=== PATIENT | female | born 1960 | race Caucasian/White ===

== ENCOUNTER → 2021-04-07 08:12 | Outpatient (BNVA) | payer MEDICAID, SELFPAY | PROVIDERS: PCP Internal Medicine; Visit Provider Physician Assistant ==

== ENCOUNTER → 2021-05-03 08:05 | Outpatient (BNVA) | payer MEDICAID, SELFPAY | PROVIDERS: PCP Internal Medicine; Visit Provider Physician Assistant ==

== ENCOUNTER 2021-05-05 10:40 | Outpatient (REF) | payer MEDICAID, SELFPAY ==
[2021-05-05 12:51] LABS: Estimated Average Glucose 105 mg/dL; Hemoglobin A1c % 5.3 %
== END 2021-05-05 10:41 | disposition home or self-care (01) ==
LOC: HO.MANLDS 10:40
PROVIDERS: PCP Physician Assistant; Visit Provider Physician Assistant
DX: E11.9 Type 2 diabetes mellitus without complications (principal)
CPT/HCPCS: 36415; 83036

== ENCOUNTER → 2021-06-07 08:07 | Outpatient (BNVA) | payer MEDICAID, SELFPAY | PROVIDERS: PCP Internal Medicine; Visit Provider Physician Assistant ==

== ENCOUNTER → 2021-06-10 08:05 | Outpatient (BNVA) | payer MEDICAID, SELFPAY | PROVIDERS: PCP Internal Medicine; Visit Provider Dietitian, Registered | DX: E66.01 Morbid (severe) obesity due to excess calories (principal) | CPT/HCPCS: 97802 ==

== ENCOUNTER 2021-06-28 08:40 | Outpatient (REF) | payer MEDICAID, SELFPAY ==
--- NOTE | ~2021-06-28 | XR_ITS ---
EXAMINATION: XR CHEST CLINICAL INFORMATION: Hypertension COMPARISON: Previous chest x-ray from 2015 TECHNIQUE: 2 views of the chest were obtained. FINDINGS: The heart does not appear enlarged. The ascending thoracic aorta appears more prominent on the AP view. It is uncertain whether this is due to patient positioning. Hilar and mediastinal contours are otherwise unremarkable. The lungs are clear. There is no pleural effusion or pneumothorax. There are degenerative changes of the thoracic spine. XR/XR chest 2V IMPRESSION: Question increased prominence of the ascending thoracic aorta versus difference due to patient positioning.
--- NOTE | ~2021-06-28 | FL_ITS ---
EXAMINATION: XR GI SERIES CLINICAL INFORMATION: Essential primary hypertension. COMPARISON: None TECHNIQUE: Routine upper GI air-contrast study was performed. FINDINGS: Following oral administration of thin barium in supine lying view there is normal propagation of bolus from the oral cavity through the pharynx, esophagus into stomach without any evidence of obstruction, narrowing or stricture. The course, caliber and peristalsis of the stomach, duodenal bulb and the sweep are normal. Patient apparently has a gastric band in the proximal stomach, however, there is no narrowing or obstruction or delay in the passage of barium. The stomach is well distended. No mucosal abnormality seen involving the stomach and the duodenum. FLUOROSCOPY TIME: 1.5 minutes. DOSE AREA PRODUCT: 12.498 uGy-m2 (microgray-meter squared). FL/FL upper GI series IMPRESSION: There is gastric Lap-Band in the proximal stomach, however, there is no restriction or obstruction of barium passage through the gastroesophageal junction and proximal stomach into the distal stomach. Single contrast GI study was performed in supine lying position.
--- NOTE | ~2021-06-28 | US_ITS ---
EXAMINATION: US COMPLETE ABDOMEN WITH LIVER ELASTOGRAPHY CLINICAL INFORMATION: Essential primary hypertension COMPARISON: None. TECHNIQUE: Real-time imaging of the abdominal viscera. Noninvasive ultrasound liver fibrosis assessment is performed using [employer] point quantification shear wave elastography (2D-SWE) with a C5-2 MHz transducer. Multiple elastography samples are obtained. Exam is limited. The exam was performed with the patient in her wheelchair. FINDINGS: PANCREAS: Not visualized ABDOMINAL AORTA: Not visualized INFERIOR VENA CAVA: Not visualized LIVER: Limited. Liver echotexture is increased. The liver is normal in size and contour. No focal liver lesion or biliary duct dilatation. The right lobe measures 15 cm in length. The left lobe measures 14 cm in length. Portal flow is normal/hepatopedal Shear wave liver elastography median stiffness is 1.4 m/s (reference: normal median stiffness is 1.3 m/s or less). IQR/median stiffness to assess sampling precision is 0.2 (reference: good quality data set is IQR/median stiffness of 0.15 or less). GALLBLADDER: Normal. The gallbladder is physiologically distended without evidence of stones, sludge, polyps, wall thickening or pericholecystic fluid. COMMON BILE DUCT: Normal in caliber measuring 0.4 cm in diameter. RIGHT KIDNEY: Limited. The kidney measures 8.7 cm in maximum dimension. LEFT KIDNEY: Limited.. The kidney measures 9.4 cm in maximum dimension. SPLEEN: Limited. The spleen measures 9 cm in maximum dimension. FREE FLUID: None. US/US abdomen comp w elastography IMPRESSION: 1. Impression: Very limited exam. Echogenic liver. 2. Liver elastography: Limited due to sampling error. In the absence of other known clinical signs, rules out compensated advanced chronic liver disease. REFERENCE: Society of Radiologists in Ultrasound Liver Stiffness Thresholds (2020): LIVER STIFFNESS THRESHOLDS: *Liver Stiffness equal or less than 1.3 m/s: High probability of being normal. *Liver Stiffness less than 1.7 m/s: In the absence of other known clinical signs, rules out compensated advanced chronic liver disease. *Liver Stiffness 1.7-2.1 m/s: Suggestive of compensated advanced chronic liver disease but need further test for confirmation. *Liver Stiffness over 2.1 m/s: Rules in compensated advanced chronic liver disease. *Liver Stiffness over 2.4 m/s: Suggestive of clinically significant portal hypertension. QUALITY OF DATA SET: *IQR/Median value equal or less than 0.15 implies a quality data set. *IQR/Median value over 0.15 implies a poor quality data set. SIGNIFICANT CHANGE FROM PRIOR EXAM: Significant change if liver stiffness measurement is 10% or greater from prior exam. OTHER CONSIDERATIONS: The stage of liver fibrosis may be overestimated in the setting of acute hepatitis, liver inflammation, elevated liver function tests, hepatic vascular congestion, obstructive cholestasis, non-fasting state, and infiltrative diseases such as amyloidosis and lymphoma. In some patients with NAFLD, the liver stiffness thresholds for compensated advanced chronic liver disease may be lower. In causes other than viral hepatitis and NAFLD, liver stiffness thresholds are not well established.
[2021-06-28 09:01] LABS: MANUAL DIFF FLAG NO
[2021-06-28 09:06] LABS: Basophils Absolute Auto 0.1 X10*3/uL (0.0-0.2); Basophils Percent Auto 1.1 % (0-2); Eosinophils Absolute Auto 0.3 X10*3/uL (0.0-0.4); Eosinophils Percent Auto 5.1 % (0-4); Hematocrit 42.2 % (37.0-47.0); Hemoglobin 13.5 g/dl (12.0-16.0); Imm Gran Abs Auto 0.01 X10*3/uL (0.00-0.03); Imm Gran Pct Auto 0.2 % (0.0-0.4); Lymphocytes Absolute Auto 1.9 X10*3/uL (1.2-4.9); Lymphocytes Percent Auto 33.9 % (20-40); Mean Corpuscular Hemoglobin 30.2 pg (27.0-33.0); Mean Corpuscular Volume 94.4 fL (80.0-98.0); Mean Platelet Volume 9.8 fL (9.4-12.3); Monocytes Absolute Auto 0.4 X10*3/uL (0.1-1.2); Monocytes Percent Auto 6.6 % (2-11); Neutrophils Percent Auto 53.1 % (45-73); Platelet Count 280 X10*3/uL (160-400); Red Blood Count 4.47 X10*6/uL (4.20-5.50); Red Cell Distribution Width 12.9 % (11.0-16.0); White Blood Count 5.6 X10*3/uL (4.8-10.8)
[2021-06-28 09:17] LABS: Estimated Average Glucose 105 mg/dL; Hemoglobin A1c % 5.3 %
[2021-06-28 09:37] LABS: Alanine Aminotransferase 28 U/L (0-31); Albumin Level 3.9 g/dL (3.5-5.0); Alkaline Phosphatase 80 U/L (39-117); Anion Gap 10 (12-20); Aspartate Amino Transferase 20 U/L (5-31); Bilirubin Total 0.2 mg/dL (0.0-1.0); Blood Urea Nitrogen 15 mg/dL (9-16); C Reactive Protein 1.03 mg/dL (< or = 0.50); Calcium 9.8 mg/dL (8.4-10.2); Carbon Dioxide 35 mmol/L (22-29); Chloride 102 mmol/L (96-108); Cholesterol 178 mg/dL; Estimated Glomerular Filt Rate > 60; Glucose Random 121 mg/dL (60-115); HDL Cholesterol 49 mg/dL; Iron 75 mcg/dL (30-160); LDL Cholesterol Calculated 115 mg/dl; Percent Iron Saturation 20 % (15-50); Potassium 3.4 mmol/L (3.3-5.1); Sodium 144 mmol/L (135-145); Total Iron Binding Capacity 382 mcg/dL (228-428); Total Protein 6.3 g/dL (6.5-8.0); Triglycerides 73 mg/dL; Unsaturated Iron Binding 307 ug/dL
[2021-06-28 10:03] LABS: Ferritin 131 ng/mL (10-250); TSH reflex Free T4 1.83 uIU/mL (0.32-4.0); Vitamin D 25-OH Total 20.2 ng/mL (>30)
[2021-06-28 10:04] LABS: Insulin 16 uU/mL (2-29)
[2021-06-28 10:28] LABS: Folate 6.8 ng/mL (> or = 4.0); Vitamin B12 609 pg/mL (200-900)
[2021-06-30 13:41] LABS: Calcium (PTHI) 9.4 mg/dL (8.6-10.4); PTHI 47 pg/mL (14-64)
[2021-07-01 12:22] LABS: Zinc 77 mcg/dL (60-130)
[2021-07-01 14:48] LABS: H Pylori Breath Test Negative (Negative)
[2021-07-02 10:12] LABS: Vitamin B1 13 nmol/L (8-30)
[2021-07-02 19:06] LABS: Vitamin A 43 mcg/dL (38-98)
== END 2021-06-28 08:41 | disposition home or self-care (01) ==
LOC: HO.US 08:40
PROVIDERS: PCP Internal Medicine; Visit Provider Physician Assistant
DX: Z01.818 Encounter for other preprocedural examination (principal); E66.01 Morbid (severe) obesity due to excess calories; E78.5 Hyperlipidemia, unspecified; I10 Essential (primary) hypertension
CPT/HCPCS: 36415; 71046; 74240; 76705; 76981; 80053; 80061; 82306; 82607; 82728; 82746; 83013; 83036; 83525; 83540; 83970; 84425; 84443; 84590; 84630; 85025; 86140; 99211

== ENCOUNTER → 2021-06-29 08:03 | Outpatient (BNVA) | payer MEDICAID, SELFPAY | PROVIDERS: PCP Internal Medicine; Visit Provider Physician Assistant ==

== ENCOUNTER → 2021-07-23 08:10 | Outpatient (BNVA) | payer MEDICAID, SELFPAY | PROVIDERS: PCP Internal Medicine; Referring Provider Physician Assistant; Visit Provider Dietitian, Registered | DX: E66.01 Morbid (severe) obesity due to excess calories (principal) | CPT/HCPCS: 97803 ==

== ENCOUNTER 2021-08-20 07:46 | Outpatient (REF) | payer MEDICAID, SELFPAY ==
--- NOTE | ~2021-08-20 | CT_ITS ---
EXAMINATION: CT ANGIOGRAM CHEST CLINICAL INFORMATION: Dilated ascending thoracic aorta seen on chest radiograph. COMPARISON: Chest radiograph 06/28/2021. TECHNIQUE: Multiple axial images were obtained through the chest after the administration of 75 mL of Omnipaque 350 intravenous contrast. Additional 2-D coronal and sagittal reformatted images and axial 3-D maximum intensity projection MIP images are generated on the CT workstation. This CT examination was performed using dose optimization techniques as appropriate, variously including the following: *Automated exposure control. *Adjustment of mA and/or kV according to patient size (this includes techniques or standardized protocols for targeted exams where dose is matched to indication/reason for exam; i.e. extremities or head). *Use of iterative reconstruction technique. DLP: 183 mGy-cm VASCULAR FINDINGS: The ascending aorta appears normal. Maximal transverse diameter of the ascending aorta is only 3.3 cm. It is mildly ectatic which may account for the finding on chest radiograph. Normal three-vessel branching pattern is seen with widely patent great vessels. The descending thoracic aorta appears normal. Although not carried out for evaluation of the pulmonary arteries or pulmonary veins, no abnormality is seen. NONVASCULAR FINDINGS: LUNGS: The lungs are clear with no evidence of inflammation or nodules. MEDIASTINUM: The mediastinum is normal. PLEURA: There is no pleural effusion. No pleural mass or thickening. AXILLA: No lymphadenopathy. UPPER ABDOMEN: Unremarkable. OSSEOUS STRUCTURES: Mild degenerative changes in the spine. No bony destructive lesions. CT/CT angio chest aorta IMPRESSION: The ascending thoracic aorta appears unremarkable without evidence of aneurysm or dissection. Fleischner guidelines were followed.
[2021-08-20 08:23] LABS: Blood Urea Nitrogen 18 mg/dL (9-16); Estimated Glomerular Filt Rate > 60
[2021-08-20] MEDS: iohexoL 350 MG/ML 100 ML INFUS..BTL IV (09:53)
== END 2021-08-20 07:47 | disposition home or self-care (01) ==
LOC: HO.CT 07:46
PROVIDERS: PCP Internal Medicine; Visit Provider Physician Assistant
DX: Z01.812 Encounter for preprocedural laboratory examination (principal); I77.89 Other specified disorders of arteries and arterioles
CPT/HCPCS: 36415; 71275; 82565; 84520; Q9967

== ENCOUNTER → 2021-09-03 13:47 | Outpatient (BNVA) | payer MEDICAID, SELFPAY | PROVIDERS: PCP Internal Medicine; Visit Provider Physician Assistant | DX: E66.01 Morbid (severe) obesity due to excess calories (principal); G12.21 Amyotrophic lateral sclerosis; Z99.3 Dependence on wheelchair; Z68.42 Body mass index [BMI] 45.0-49.9, adult; Z98.84 Bariatric surgery status | CPT/HCPCS: 99212 ==

== ENCOUNTER → 2021-10-08 13:46 | Outpatient (BNVA) | payer MEDICAID, SELFPAY | PROVIDERS: PCP Internal Medicine; Visit Provider Physician Assistant | DX: E66.01 Morbid (severe) obesity due to excess calories (principal); G12.21 Amyotrophic lateral sclerosis; Z98.84 Bariatric surgery status; Z68.42 Body mass index [BMI] 45.0-49.9, adult | CPT/HCPCS: 99212 ==

== ENCOUNTER 2021-11-17 11:37 | Outpatient (REF) | payer MEDICAID, SELFPAY ==
[2021-11-17 12:45] LABS: Appearance Urine HAZY; Color Urine YELLOW; Glucose Urine UA NEG (NEG); Leukocyte Esterase Urine 2+ (NEG); Nitrite Urine NEG (NEG); UACC Culture Trigger YES; Urine Blood NEG (NEG); Urine Ketones NEG (NEG); Urine Protein NEG (NEG-TRACE)
[2021-11-17 12:56] LABS: Bacteria Urine 1+ /LPF; RBC Urine 0 /HPF (0); Renal Epithelial Cells Urine 1+ /LPF; Squamous Epithelial Cell Urine 1+ /LPF; UACC CULT YES
[2021-11-17 12:59] LABS: Urine Talc Crystals 1+ /LPF
== END 2021-11-17 11:38 | disposition home or self-care (01) ==
LOC: HO.MANLDS 11:37
PROVIDERS: Visit Provider Physician Assistant
DX: R30.9 Painful micturition, unspecified (principal)
CPT/HCPCS: 81001; 87086; 87088; 87186

== ENCOUNTER 2021-11-25 03:20 | Emergency (ER) | payer MEDICAID, SELFPAY ==
--- NOTE | ~2021-11-25 | CT_ITS ---
EXAMINATION: CT ANGIOGRAM OF THE CHEST WITH AND WITHOUT CONTRAST (CT PULMONARY ANGIOGRAM FOR PE) CLINICAL INFORMATION: Reason for Exam Shortness of breath, elevated D-dimer COMPARISON: CT angiogram chest 08/20/2021, chest radiograph 06/28/2021. TECHNIQUE: Prior to contrast administration, noncontrast localization images were obtained. Subsequently, multidetector volumetric imaging was performed from the thoracic inlet to below the diaphragms following the administration of 80 mL Omnipaque 350 intravenous contrast. No contrast reaction reported Sagittal, coronal, and MIP oblique sagittal reformatted images were obtained on the CT workstation, uploaded to PACS, and reviewed. This CT examination was performed using dose optimization techniques as appropriate, variously including the following: *Automated exposure control *Adjustment of mA and/or kV according to patient size (this includes techniques or standardized protocols for targeted exams where dose is matched to indication/reason for exam; i.e. extremities or head) *Use of iterative reconstruction technique Total exam dose-length product 562 mGy-cm FINDINGS: QUALITY OF STUDY/CONTRAST BOLUS: Satisfactory. Pulmonary arterial system: No intraluminal filling defects are noted in the visualized pulmonary arterial system to suggest the presence of pulmonary emboli. The main and central pulmonary arteries are normal in caliber. *4 mm noncalcified right upper lobe pulmonary nodule (series 6 image 154) possibly one-2 mm increase in size compared with 08/20/2021. *Vague noncalcified 2 mm right upper lobe pulmonary nodule (series 6 image 114 without a correlate on the exam of 08/20/2021. Mediastinum: Normal heart size. Normal caliber and contour of the thoracic aorta. No pericardial thickening or fluid collections. No mediastinal lymphadenopathy. Lungs and pleura: Mild bibasilar dependent atelectasis of the lungs is noted. No pulmonary consolidation identified. No pleural thickening or pleural effusions. No pneumothoraces. CHEST WALL: No axillary lymphadenopathy. Internally visualized abdominal structures: Diffuse low density of the visualized liver suspicious for hepatic steatosis. The adrenal glands are partially included in the image [id number] and are normal in appearance. Partial visualization is made of an adjustable gastric lap band. Skeletal structures: Mild multilevel anterior endplate osteophytosis of the thoracic spine. No vertebral body compression deformities. CT/CT angio chest PE protocol IMPRESSION: *CT pulmonary angiogram negative for pulmonary emboli. *Mild bibasilar dependent atelectasis of the lungs. *Partially visualized adjustable gastric lap band. *Indeterminate 4 mm noncalcified right upper lobe pulmonary nodule and indeterminate 2 mm right upper lobe pulmonary nodule. Per the 2017 revised Fleischner Society guidelines, in low-risk patients no routine follow-up is necessarily required. In patients at high-risk for pulmonary neoplasm, recommend consideration of follow-up CT at 12 months to demonstrate nodule stability. VTE: negative
[2021-11-25 03:32] VITALS: BP 95/70; PULSE 90; O2SAT 94
--- NOTE | 2021-11-25 03:49 | ED.SOB ---
HPI - SOB/Dyspnea General Chief Complaint: General Medical Stated Complaint: sob Time Seen by Provider: 11/25/21 03:48 Source: patient Mode of arrival: EMS History of Present Illness HPI Narrative: This is a 61-year-old female with recent diagnosis of ALS who presents with increasing shortness of breath since yesterday and is currently being followed at the ALS clinic in [place] by Dr. Laura Torres. Patient states that over the past year her symptoms have become progressive and she has not been able to walk for the past 6 months. She states that this does not feel like her regular asthma symptoms. She denies any fever, chills, chest pain/palpitations and states that she is unable to lift her bilateral arms greater than 15 degrees. Related Data Home Medications Medication Instructions Recorded Confirmed apixaban 5 mg tablet (Eliquis) 5 mg PO BID 04/07/21 05/03/21 baclofen 5 mg tablet 5 mg PO DAILY 04/07/21 05/03/21 bupropion HCl 300 mg 24 hr tablet, 300 mg PO QAM 04/07/21 05/03/21 extended release celecoxib 200 mg capsule (Celebrex) 200 mg PO DAILY 04/07/21 05/03/21 gabapentin 600 mg tablet 600 mg PO BID 04/07/21 05/03/21 gemfibrozil 600 mg tablet 600 mg PO BID 04/07/21 05/03/21 magnesium 200 mg tablet 400 mg PO DAILY 04/07/21 05/03/21 montelukast 10 mg tablet 10 mg PO DAILY 04/07/21 05/03/21 oxycodone 5 mg tablet 5 mg PO BID PRN 04/07/21 05/03/21 torsemide 20 mg tablet 20 mg PO DAILY 04/07/21 05/03/21 cholecalciferol (vitamin D3) 25 50 mcg PO DAILY 06/28/21 mcg (1,000 unit) chewable tablet cetirizine 10 mg capsule (Zyrtec) 10 mg PO DAILY PRN 10/08/21 Allergies Allergy/AdvReac Type Severity Reaction Status Date / Time Sulfa Allergy Unknown Uncoded 06/14/11 00:00 sulfa Allergy Unknown tongue Uncoded 12/05/19 00:00 swelling Review of Systems Review of Systems: Pertinent positives and negatives as stated in the HPI and 10 point review of systems is otherwise negative. PMFSH Past Medical History Source: nursing notes reviewed Medical History Acute meniscal tear of left knee Cauda equina syndrome Pulmonary embolism Surgical History H/O Spinal surgery Social History Social History Alcohol intake: current Alcohol intake frequency: a few times a month Patient Tobacco Use Status: Never used Tobacco Advance Directives: No Physical Exam Vital Signs: Vital Signs: Last Vital Signs Temp 98.0 F 11/25/21 03:52 Pulse 92 11/25/21 04:42 Resp 22 H 11/25/21 04:42 BP 175/111 H 11/25/21 03:59 Pulse Ox 95 11/25/21 04:42 O2 Del Method 11/25/21 04:42 BMI result Body Mass Index 44.4 VITAL SIGNS: Reviewed. GENERAL: Well developed, well nourished, in mild distress. HEAD: Normocephalic/atraumatic EYES: PERRLA, EOMI EARS: Ext canals without abnormality OROPHARYNX: no oral lesions noted, posterior pharynx clear, dry mucosa, questionable thrush NECK: Supple, no adenopathy LUNGS: Decreased bibasilar breath sounds, no wheeze/rhonchi/rales. Mild tachypnea. SpO2<95> CARDIOVASCULAR: Regular rate and rhythm without noted murmurs, no JVD or lower extremity edema. ABDOMEN: Soft, non-tender, non-distended with bowel sounds. MUSCULOSKELETAL: No tenderness, deformities, or effusions noted on gross inspection. EXTREMITIES: No cyanosis, clubbing or edema. SKIN: Inspection of the skin reveals no rashes, ulcerations, jaundice, pallor, or petechiae. NEUROLOGIC: Alert and oriented x 4 patient is unable to move her lower body at baseline, also, patient is unable to left bilateral arms up past 15 degrees, patient blinks frequently.. Course Course Course Narrative: 61-year-old female with history and clinical presentation mildly suggestive of a less progression, on review of all investigations no evidence of infection, anemia, or electrolyte disturbance. Review of all investigations is negative for acute findings in although it is noted that there is an elevation of the alkaline taste and transaminases this is felt to be potentially secondary to side effects as patient is afebrile, has no abdominal complaints, and there is no leukocytosis. Patient was informed of all results and findings and she states that the most difficult time of day for her shortness of breath is at night while she is trying to sleep and then while she is conversing with others. I strongly encouraged her to follow-up with her neurologist here in [place] to start the process of approval for BiPAP as per the recommendations from her ALS physician. Patient will likely benefit from using the BiPAP at night so that she can get a full night's rest and we discussed options for conversation throughout the day. She is otherwise discharged home in stable condition. Reevaluation(s) Reevaluation #1: I spoke with patient's ALS physician, Dr. Torres, who is located at the ALS clinic outside of [place]. She recommends that if in fact patient's breathing is significantly concerning than she should be started on BiPAP. Not as a rescue measure but as an escalation in treatment for patient's ALS. She does not feel that is necessary for patient to be transferred. Time: 03:55 MDM - SOB/Dyspnea Lab Data Result diagrams: 11/25/21 04:14 11/25/21 04:14 Labs: Lab Results 11/25/21 11/25/21 11/25/21 Range/Units 04:14 04:14 04:14 WBC 8.7 (4.8-10.8) X10*3/uL RBC 5.00 (4.20-5.50) X10*6/uL Hgb 14.7 (12.0-16.0) g/dl Hct 46.7 (37.0-47.0) % MCV 93.4 (80.0-98.0) fL MCH 29.4 (27.0-33.0) pg MCHC 31.5 (31.0-35.0) g/dl RDW 13.2 (11.0-16.0) % Plt Count 329 (160-400) X10*3/uL MPV 9.2 L (9.4-12.3) fL Immature Gran % (Auto) 0.2 (0.0-0.4) % Neut % (Auto) 60.6 (45-73) % Lymph % (Auto) 27.5 (20-40) % [place] % (Auto) 5.9 (2-11) % Eos % (Auto) 4.6 H (0-4) % Baso % (Auto) 1.2 (0-2) % Lymph # (Auto) 2.4 (1.2-4.9) X10*3/uL [place] # (Auto) 0.5 (0.1-1.2) X10*3/uL Eos # (Auto) 0.4 (0.0-0.4) X10*3/uL Baso # (Auto) 0.1 (0.0-0.2) X10*3/uL Abs Immat Gran (auto) 0.02 (0.00-0.03) X10*3/uL Absolute Neuts (auto) 5.3 (2.0-8.3) x10*3/uL Absolute Nucleated RBC 0.000 (0.0-0.012) X10*3/uL Nucleated RBC % (auto) 0.0 (0.0-0.2) /100WBC ESR 10 (0-20) MM/HR PT Cancelled INR Cancelled D-Dimer High Sensitivty NG/ML Sodium (135-145) mmol/L Potassium (3.3-5.1) mmol/L Chloride (96-108) mmol/L Carbon Dioxide (22-29) mmol/L Anion Gap (12-20) BUN (9-16) mg/dL Creatinine (0.5-1.4) mg/dL Estim Creat Clear Calc Estimated GFR Random Glucose (60-115) mg/dL Calcium (8.4-10.2) mg/dL Total Bilirubin (0.0-1.0) mg/dL AST (5-31) U/L ALT (0-31) U/L Alkaline Phosphatase (39-117) U/L C-Reactive Protein (< or = 0.50) mg/dL Total Protein (6.5-8.0) g/dL Albumin (3.5-5.0) g/dL Urine Color Urine Appearance Urine pH (5.0-8.0) Ur Specific [place] (1.005-1.025) Urine Protein (NEG-TRACE) MG/DL Urine Glucose (UA) (NEG) MG/DL Urine Ketones (NEG) MG/DL Urine Blood (NEG) Urine Nitrite (NEG) Ur Leukocyte Esterase (NEG) COVID-19 (LEXI) (Negative) COVID-19 Clin Com 11/25/21 11/25/21 11/25/21 Range/Units 04:14 04:14 04:15 WBC (4.8-10.8) X10*3/uL RBC (4.20-5.50) X10*6/uL Hgb (12.0-16.0) g/dl Hct (37.0-47.0) % MCV (80.0-98.0) fL MCH (27.0-33.0) pg MCHC (31.0-35.0) g/dl RDW (11.0-16.0) % Plt Count (160-400) X10*3/uL MPV (9.4-12.3) fL Immature Gran % (Auto) (0.0-0.4) % Neut % (Auto) (45-73) % Lymph % (Auto) (20-40) % [place] % (Auto) (2-11) % Eos % (Auto) (0-4) % Baso % (Auto) (0-2) % Lymph # (Auto) (1.2-4.9) X10*3/uL [place] # (Auto) (0.1-1.2) X10*3/uL Eos # (Auto) (0.0-0.4) X10*3/uL Baso # (Auto) (0.0-0.2) X10*3/uL Abs Immat Gran (auto) (0.00-0.03) X10*3/uL Absolute Neuts (auto) (2.0-8.3) x10*3/uL Absolute Nucleated RBC (0.0-0.012) X10*3/uL Nucleated RBC % (auto) (0.0-0.2) /100WBC ESR (0-20) MM/HR PT 10.9 INR 1.0 D-Dimer High Sensitivty 743 NG/ML Sodium 145 (135-145) mmol/L Potassium 3.9 (3.3-5.1) mmol/L Chloride 101 (96-108) mmol/L Carbon Dioxide 36 H (22-29) mmol/L Anion Gap 12 (12-20) BUN 13 (9-16) mg/dL Creatinine 0.56 (0.5-1.4) mg/dL Estim Creat Clear Calc 149.2 Estimated GFR > 60 Random Glucose 122 H (60-115) mg/dL Calcium 9.5 (8.4-10.2) mg/dL Total Bilirubin < 0.2 (0.0-1.0) mg/dL AST 40 H D (5-31) U/L ALT 57 H (0-31) U/L Alkaline Phosphatase 144 H D (39-117) U/L C-Reactive Protein 0.88 H (< or = 0.50) mg/dL Total Protein 6.6 (6.5-8.0) g/dL Albumin 4.0 (3.5-5.0) g/dL Urine Color YELLOW Urine Appearance CLEAR Urine pH 7.0 (5.0-8.0) Ur Specific [place] 1.010 (1.005-1.025) Urine Protein NEG (NEG-TRACE) MG/DL Urine Glucose (UA) NEG (NEG) MG/DL Urine Ketones NEG (NEG) MG/DL Urine Blood NEG (NEG) Urine Nitrite NEG (NEG) Ur Leukocyte Esterase NEG (NEG) COVID-19 (LEXI) (Negative) COVID-19 Clin Com 11/25/21 Range/Units 04:18 WBC (4.8-10.8) X10*3/uL RBC (4.20-5.50) X10*6/uL Hgb (12.0-16.0) g/dl Hct (37.0-47.0) % MCV (80.0-98.0) fL MCH (27.0-33.0) pg MCHC (31.0-35.0) g/dl RDW (11.0-16.0) % Plt Count (160-400) X10*3/uL MPV (9.4-12.3) fL Immature Gran % (Auto) (0.0-0.4) % Neut % (Auto) (45-73) % Lymph % (Auto) (20-40) % [place] % (Auto) (2-11) % Eos % (Auto) (0-4) % Baso % (Auto) (0-2) % Lymph # (Auto) (1.2-4.9) X10*3/uL [place] # (Auto) (0.1-1.2) X10*3/uL Eos # (Auto) (0.0-0.4) X10*3/uL Baso # (Auto) (0.0-0.2) X10*3/uL Abs Immat Gran (auto) (0.00-0.03) X10*3/uL Absolute Neuts (auto) (2.0-8.3) x10*3/uL Absolute Nucleated RBC (0.0-0.012) X10*3/uL Nucleated RBC % (auto) (0.0-0.2) /100WBC ESR (0-20) MM/HR PT INR D-Dimer High Sensitivty NG/ML Sodium (135-145) mmol/L Potassium (3.3-5.1) mmol/L Chloride (96-108) mmol/L Carbon Dioxide (22-29) mmol/L Anion Gap (12-20) BUN (9-16) mg/dL Creatinine (0.5-1.4) mg/dL Estim Creat Clear Calc Estimated GFR Random Glucose (60-115) mg/dL Calcium (8.4-10.2) mg/dL Total Bilirubin (0.0-1.0) mg/dL AST (5-31) U/L ALT (0-31) U/L Alkaline Phosphatase (39-117) U/L C-Reactive Protein (< or = 0.50) mg/dL Total Protein (6.5-8.0) g/dL Albumin (3.5-5.0) g/dL Urine Color Urine Appearance Urine pH (5.0-8.0) Ur Specific [place] (1.005-1.025) Urine Protein (NEG-TRACE) MG/DL Urine Glucose (UA) (NEG) MG/DL Urine Ketones (NEG) MG/DL Urine Blood (NEG) Urine Nitrite (NEG) Ur Leukocyte Esterase (NEG) COVID-19 (LEXI) Negative (Negative) COVID-19 Clin Com See Note ECG Data Attestation: I personally reviewed and interpreted this ECG as follows: Prior ECG tracings: not available for review Interpretation: NSR, HR-86, no STEMI, MI/QRS/QTC are within normal limits. Discharge Plan Discharge Clinical Impression: Shortness of breath, ALS (amyotrophic lateral sclerosis) Patient Disposition: Home, Self-Care Instructions: Shortness of Breath (ED), Amyotrophic Lateral Sclerosis (DC) Additional Instructions: 1. Resume all home medications as prescribed. 2. Discuss initiating the use of a BiPAP at night with your neurologist in [place] as per recommendations from Dr. Torres. Return to the ER for any worsening symptoms. Prescriptions: No Action cholecalciferol (vitamin D3) 25 mcg (1,000 unit) tablet,chewable 50 mcg PO DAILY Eliquis 5 mg tablet 5 mg PO BID gabapentin 600 mg tablet 600 mg PO BID gemfibrozil 600 mg tablet 600 mg PO BID montelukast 10 mg tablet 10 mg PO DAILY baclofen 5 mg tablet 5 mg PO DAILY bupropion HCl 300 mg tablet extended release 24 hr 300 mg PO QAM torsemide 20 mg tablet 20 mg PO DAILY celecoxib [Celebrex] 200 mg capsule 200 mg PO DAILY oxycodone 5 mg tablet 5 mg PO BID PRN magnesium 200 mg tablet 400 mg PO DAILY Zyrtec 10 mg capsule 10 mg PO DAILY PRN
[2021-11-25 03:52] VITALS: BP 175/121; PULSE 98; RESP 26; TEMP 36.7; O2SAT 99; BMI 44.4
[2021-11-25 03:59] VITALS: BP 175/111; PULSE 96; RESP 20; O2SAT 93
--- NOTE | 2021-11-25 04:00 | ECG_ITS ---
Test Reason : SOB Blood Pressure : / mmHG Vent. Rate : 086 BPM Atrial Rate : 086 BPM P-R Int : 162 ms QRS Dur : 072 ms QT Int : 352 ms P-R-T Axes : 036 -13 033 degrees QTc Int : 421 ms Normal sinus rhythm Minimal voltage criteria for LVH, may be normal variant ( R in aVL ) Borderline ECG No previous ECGs available Referred By: Gloria Reeves Electronically Signed By:AUSTYN ROACH
[2021-11-25 04:20] LABS: MANUAL DIFF FLAG NO
[2021-11-25 04:21] LABS: Basophils Absolute Auto 0.1 X10*3/uL (0.0-0.2); Basophils Percent Auto 1.2 % (0-2); Eosinophils Absolute Auto 0.4 X10*3/uL (0.0-0.4); Eosinophils Percent Auto 4.6 % (0-4); Hematocrit 46.7 % (37.0-47.0); Hemoglobin 14.7 g/dl (12.0-16.0); Imm Gran Abs Auto 0.02 X10*3/uL (0.00-0.03); Imm Gran Pct Auto 0.2 % (0.0-0.4); Lymphocytes Absolute Auto 2.4 X10*3/uL (1.2-4.9); Lymphocytes Percent Auto 27.5 % (20-40); Mean Corpuscular HGB Conc 31.5 g/dl (31.0-35.0); Mean Corpuscular Hemoglobin 29.4 pg (27.0-33.0); Mean Corpuscular Volume 93.4 fL (80.0-98.0); Mean Platelet Volume 9.2 fL (9.4-12.3); Monocytes Absolute Auto 0.5 X10*3/uL (0.1-1.2); Monocytes Percent Auto 5.9 % (2-11); Neutrophils Absolute Auto 5.3 x10*3/uL (2.0-8.3); Neutrophils Percent Auto 60.6 % (45-73); Platelet Count 329 X10*3/uL (160-400); Red Cell Distribution Width 13.2 % (11.0-16.0); White Blood Count 8.7 X10*3/uL (4.8-10.8)
[2021-11-25 04:29] LABS: Prothrombin Time 10.9 SEC (9.9-13.0)
[2021-11-25 04:31] LABS: D Dimer High Sensitivity 743 NG/ML
[2021-11-25 04:42] VITALS: PULSE 92; RESP 22; O2SAT 95
[2021-11-25 04:43] LABS: Appearance Urine CLEAR; Color Urine YELLOW; Glucose Urine UA NEG (NEG); Leukocyte Esterase Urine NEG (NEG); Nitrite Urine NEG (NEG); Urine Blood NEG (NEG); Urine Ketones NEG (NEG); Urine Protein NEG (NEG-TRACE)
[2021-11-25 04:45] LABS: Alanine Aminotransferase 57 U/L (0-31); Alkaline Phosphatase 144 U/L (39-117); Anion Gap 12 (12-20); Aspartate Amino Transferase 40 U/L (5-31); Bilirubin Total < 0.2 mg/dL (0.0-1.0); Blood Urea Nitrogen 13 mg/dL (9-16); C Reactive Protein 0.88 mg/dL (< or = 0.50); Calcium 9.5 mg/dL (8.4-10.2); Carbon Dioxide 36 mmol/L (22-29); Chloride 101 mmol/L (96-108); Creatinine Clr Calc Pharmacy 149.2; Estimated Glomerular Filt Rate > 60; Glucose Random 122 mg/dL (60-115); Potassium 3.9 mmol/L (3.3-5.1); Sodium 145 mmol/L (135-145); Total Protein 6.6 g/dL (6.5-8.0)
[2021-11-25 04:52] LABS: COVID-19 Test Negative (Negative)
[2021-11-25 05:01] LABS: Erythrocyte Sedimentation Rate 10 MM/HR (0-20)
[2021-11-25] MEDS: iohexoL 350 MG/ML 100 ML INFUS..BTL IV (06:14)
== END 2021-11-25 09:35 | disposition home or self-care (01) ==
PROVIDERS: Emergency Provider Student in an Organized Health Care Education/Training Program
DX: R06.02 Shortness of breath (principal); G12.21 Amyotrophic lateral sclerosis; Z20.822 Contact with and (suspected) exposure to COVID-19; I10 Essential (primary) hypertension; E78.5 Hyperlipidemia, unspecified; Z79.01 Long term (current) use of anticoagulants; Z98.84 Bariatric surgery status
CPT/HCPCS: 36415; 71275; 80053; 81003; 85025; 85379; 85610; 85652; 86140; 87635; 93005; 99284; Q9967